=== PATIENT | female | born 1990 | race Caucasian/White ===

== ENCOUNTER 2025-04-07 12:41 | Emergency (ER) | payer BC, SELFPAY ==
[2025-04-07 13:09] VITALS: BP 141/89; PULSE 130; RESP 20; TEMP 37.3; O2SAT 99
--- NOTE | 2025-04-07 13:36 | EDNOTE_ITS ---
ED General RME/HPI General Chief complaint: Nausea/Vomiting/Diarrhea Stated complaint: UABLE TO EAT X 10 DAYS, SORE THROAT, DIARRHEA Time Seen by Provider: 04/07/25 13:34 Arrival date/time: 04/07/25 12:41 CC: Diarrhea, loss of appetite, dehydration HPI ongoing for 1 week family members recently diagnosed with COVID. Also complaining of sore throat denies cough and fever at home. History of diverticulosis, has a nova ring that she pulled out to start her menstrual cycle which is also resulting in abdominal cramping. Related Data Allergies Allergy/AdvReac Type Severity Reaction Status Date / Time No Known Allergies Allergy Verified 04/07/25 12:44 Course Course Course Narrative: At the time the patient was roomed before fluids patient's heart rate decreased into the 90s at this time COVID and influenza is negative I am not sure what the causes of her symptoms however 2 L she is feeling better. Patient will be discharged home with dehydration Quality Measures none Orders Category Date Time Status Bedside COVID-19 Antigen Test NOW Care 04/07/25 13:37 Active Bedside Influenza A&B Antigen Test NOW Care 04/07/25 13:37 Completed Saline [Insert IV] NOW Care 04/07/25 13:34 Active B-Type Natriuretic Peptide Stat Lab 04/07/25 13:55 Completed CBC Stat Lab 04/07/25 13:55 Completed Comprehensive Metabolic Panel Stat Lab 04/07/25 13:55 Completed Drug Screen,Urine Stat Lab 04/07/25 15:14 Received HCG Qualitative,Urine Stat Lab 04/07/25 15:14 Completed Lipase Stat Lab 04/07/25 13:55 Completed Magnesium Stat Lab 04/07/25 13:55 Completed Partial Thromboplastin Time Stat Lab 04/07/25 13:55 Completed Prothrombin Time with INR Stat Lab 04/07/25 13:55 Completed Urinalysis, C/S if Indicated Stat Lab 04/07/25 15:14 Completed Sodium Chloride 0.9% 1000 ml [Ns] 1,000 ml Med 04/07/25 13:35 Discontinued IV 999 mls/hr Sodium Chloride 0.9% 1000 ml [Ns] 1,000 ml Med 04/07/25 13:35 Discontinued IV 999 mls/hr Vital Signs Vital signs: Vital Signs Temperature 99.1 F 04/07/25 13:09 Pulse Rate 130 H 04/07/25 13:09 Respiratory Rate 20 04/07/25 13:09 Blood Pressure 141/89 H 04/07/25 13:09 Pulse Oximetry (%) 99 04/07/25 13:09 Oxygen Delivery Method Room Air 04/07/25 13:09 Discharge Plan Plan Patient Disposition: HOME (Self Care) Patient condition on transfer: Stable Prescriptions/Referrals Referrals: Austin Wilson MD [Physician] - In 1 week No Primary/Family,Physician [Primary Care Provider] - In 1 week Problem List Clinical Impression: Dehydration Patient/Caregiver Discharge Instructions Education Materials: Dehydration Additional Instructions: Rest drink plenty of fluids is worsening of symptoms return to the emergency room for reevaluation. Print Language: Kyrgyz Stand Alone Forms: [employer] Award Info., Work/School Release, Patient Portal Info Letter KI/BEBE Supervising Physician KI/BEBE Supervising Physician: Doe Lewis ENP [facility] Clinical Information Provided by patient Medical Records Reviewed [facility] Meds/Rx Considered, not Ordered None Labs/Rad/Tests considered, not Ordered None Describe details: CBC shows a mild leukocytosis 11.8 no anemia thrombocytopenia Coags within acceptable limits CMP shows no significant electrolyte imbalances renal impairment transaminitis or T. bili elevation. Urine is turbid 4+ ketones 3+ blood no WBCs rare bacteria leukocyte esterase is negative Chronic Illness/Social Conditions Add or document further as needed: Diverticulosis EKG EKG not done Lab Interpretation Lab(s) interpretation(s): CBC shows a mild leukocytosis 11.8 no anemia or thrombocytopenia CMP shows no significant electrolyte imbalances renal impairment transaminitis or T. bili elevation BNP is negative Lipase is within acceptable limits COVID influenza negative Medication Administration(s) Medication Administration History Discontinued Medications Sodium Chloride (Ns) 1,000 mls @ 999 mls/hr IV .Q1H1M ONE Stop: 04/07/25 14:35 Last Infusion: 04/07/25 16:13 Dose: Infused Documented By: Admin: 04/07/25 14:12 Dose: 999 mls/hr Documented By: ROSI Sodium Chloride (Ns) 1,000 mls @ 999 mls/hr IV .Q1H1M ONE Stop: 04/07/25 14:35 Last Infusion: 04/07/25 16:13 Dose: Infused Documented By: Admin: 04/07/25 14:13 Dose: 999 mls/hr Documented By: ROSI
[2025-04-07 14:09] LABS: Basophils # (Auto) 0.1 Thou/mm3 (0.0-0.2); Basophils % (Auto) 1 % (0-2.5); Eosinophils # (Auto) 0.3 Thou/mm3 (0.0-0.5); Eosinophils % (Auto) 3 % (0-10); Hematocrit 45.7 % (36.0-46.0); Hemoglobin 15.3 g/dL (12.0-16.0); Immature Granulocytes Auto 0.02 Thou/mm3 (0.00-0.00); Lymphocytes # (Auto) 2.1 Thou/mm3 (1.0-4.8); Lymphocytes % (Auto) 18 % (10-50); Mean Corpuscular HGB Conc 33.5 g/dl (31.0-37.0); Mean Corpuscular Hemoglobin 27.7 pg (25.0-35.0); Mean Corpuscular Volume 83 fL (80-100); Monocytes # (Auto) 0.9 Thou/mm3 (0.0-0.8); Monocytes % (Auto) 7 % (0-12); Neutrophils # (Auto) 8.4 Thou/mm3 (1.8-7.7); Neutrophils % (Auto) 72 % (37-80); Nucleated Red Blood Cell # 0.00 Thou/mm3 (0.00-0.00); Nucleated Red Blood Cell % 0 /100 WBC (0); Platelet Count 497 Thou/mm3 (140-440); RDW Standard Deviation 38.8 fL (36.4-46.3); Red Blood Count 5.52 Miln/mm3 (4.00-5.20); White Blood Count 11.8 Thou/mm3 (3.6-11.0)
[2025-04-07] MEDS: SODIUM CHLORIDE 0.9% 1000 ML 1,000 ML 999 ML IV ×2 (14:12→14:13)
[2025-04-07 14:22] LABS: B-Type Natriuretic Peptide < 20 pg/mL (0-100)
[2025-04-07 14:24] LABS: Alanine Aminotransferase 47 U/L (10-49); Albumin, Serum 5.1 gm/dL (3.5-5.0); Albumin/Globulin Ratio 1.8 (1.2-2.2); Alkaline Phosphatase 102 U/L (46-116); Anion Gap 13 (7-16); Aspartate Amino Transferase 28 U/L (0-34); BUN/Creatinine Ratio 6 Ratio (12-20); Bilirubin,Total 0.6 mg/dL (0.3-1.2); Blood Urea Nitrogen 5 mg/dL (9-23); Calcium 10.6 mg/dL (8.3-10.6); Calcium (Corrected) 10.6 mg/dL (8.5-10.1); Carbon Dioxide 21.7 mMol/L (20.0-31.0); Chloride 106 mMol/L (98-107); Creatinine (Component) 0.8 mg/dL (0.6-1.3); Estimated Creatinine Clearance 121.3 mL/min (>60); Globulin 2.9 gm/dL (2.3-3.5); Glucose 104 mg/dL (74-106); Lipase 30 U/L (12-53); Magnesium 2.0 mg/dL (1.6-2.6); Osmolality,Calculated 278 (275-295); Potassium 3.8 mMol/L (3.4-5.1); Sodium 141 mMol/L (136-145); Total Protein 8.0 gm/dL (5.7-8.2); eGFR > 60 See Note
[2025-04-07 14:34] VITALS: BP 132/92; PULSE 95; RESP 16; O2SAT 98
[2025-04-07 14:40] LABS: INR 1.0 (0.9-1.3); Partial Thromboplastin Time 27.3 Seconds (22.0-36.0); Prothrombin Time 11.4 Seconds (9.0-12.2)
[2025-04-07 15:58] LABS: Collection Type, Urine Clean Catch
[2025-04-07 16:18] VITALS: BP 132/92; PULSE 92; RESP 15; TEMP 37.1; O2SAT 97
[2025-04-07 16:38] LABS: HCG Qualitative,Urine Negative
[2025-04-07 16:46] LABS: Bacteria,Urine Rare; Bilirubin,Urine Negative (Negative); Blood,Urine 3+ (Negative); Clarity,Urine Turbid (Clear/Hazy); Color,Urine Yellow (Lt Yel-Yel); Culture Indicated,Urine Not Indicated; Glucose, Urine Negative (Negative); Ketones,Urine 4+ (Negative); Leukocyte Esterase,Urine Negative (Negative); Nitrite,Urine Negative (Negative); PH,Urine 6.0 (5.0-7.0); Protein,Urine 1+ (Neg - Trace); RBC,Urine 5 /hpf (0-3); Specific Gravity,Urine 1.031 (1.001-1.035); Squamous Epithelial Cell,Urine 12 /hpf (0-5); Urobilinogen,Urine Negative mg/dL (0.0-1.0); WBC,Urine 5 /hpf (0-5)
[2025-04-07 17:34] VITALS: BP 139/85; PULSE 86; RESP 17; TEMP 37.2; O2SAT 97
== END 2025-04-07 17:41 | disposition home or self-care (01) ==
PROVIDERS: Registered Nurse General Practice; Emergency Provider Family Medicine
DX: E86.0 Dehydration (principal)
CPT/HCPCS: 36415; 80053; 80307; 81001; 81025; 83690; 83735; 83880; 85025; 85610; 85730; 87400; 87811; 96360; 96361; 99284; J7030